=== PATIENT | male | born 1950 | race Caucasian/White ===

== ENCOUNTER 2019-07-11 01:09 | Observation (INO) | payer MEDICARE ==
[2019-07-11] MEDS ORDERED: Ondansetron PF 4 MG/2 ML Vial IVP PRN ×2 (02:31→04:50)
[2019-07-11] MEDS ORDERED: Ondansetron ODT 4 MG TAB SL PRN (02:31)
[2019-07-11 03:02] VITALS: BMI 30.4
[2019-07-11] MEDS ORDERED: Ketorolac Tromethamine 30 MG/ML VIAL IVP SCH (03:15)
[2019-07-11] MEDS ORDERED: HumaLOG 300 UNITS/3 ML VIAL SC PRN ×2 (04:50)
[2019-07-11] MEDS ORDERED: hydrALAZINE 20 MG/ML VIAL SLOW IVP PRN (04:50)
[2019-07-11] MEDS ORDERED: Dextrose 5% in Water 1,000 ML IV PRN (04:50)
[2019-07-11] MEDS ORDERED: Ondansetron ODT 4 MG TAB PO PRN (04:50)
[2019-07-11] MEDS ORDERED: Acetaminophen 500 MG TAB PO PRN (04:50)
[2019-07-11] MEDS ORDERED: Dextrose 50% Abboject 50 ML SYRINGE SLOW IVP PRN (04:50)
[2019-07-11] MEDS: Sodium Chloride 0.9% 1,000 ML IV SCH ×2 (05:27→17:11)
--- NOTE | 2019-07-11 07:07 | HP ---
PRIMARY CARE PROVIDER: Andrew Duffy MD CHIEF COMPLAINT: Abdominal pain. HISTORY OF PRESENT ILLNESS: This is a 69-year-old male, who presents to [facility] in transfer from [facility], where the patient initially presented with suprapubic abdominal pain, constipation x1 week without trauma injury or dysuria. The patient states he has had constipation over approximately 1 week's time, taking MiraLAX without relief. The patient denied any documented fever, but felt chills and some back pain. The patient denied any diarrhea, blood in his stool or urine. The patient denied any nausea or vomiting. The patient denied any travel history, trauma injury, or recent procedures. In the emergency room, the patient underwent general evaluation including CT of the abdomen and pelvis showing extensive colonic diverticulosis with possible diverticulitis of the sigmoid region. The patient received IV Flagyl, Rocephin, Zofran, and 1 L of normal saline. PAST MEDICAL HISTORY: 1. Coronary artery disease, status post cardiac stent placement. 2. Hypertension. 3. Diabetes mellitus, type 2. 4. Hyperlipidemia. PAST SURGICAL HISTORY: 1. Status post cardiac stent placement. 2. Status post right foot incision and drainage secondary to diabetic ulcer. 3. Status post bilateral great toe amputation. CURRENT MEDICATIONS: 1. Aspirin 81 mg p.o. daily. 2. Lipitor 80 mg p.o. daily. 3. Carvedilol 3.125 mg p.o. b.i.d. 4. Lasix 40 mg p.o. daily. 5. Lisinopril 10 mg p.o. daily. 6. Metformin 500 mg p.o. b.i.d. ALLERGIES: NO KNOWN DRUG ALLERGIES. FAMILY HISTORY: Positive for diabetes and hypertension. SOCIAL HISTORY: Resides in the [place], [place] area. No alcohol or illicit drug use. Remote tobacco use, none currently. REVIEW OF SYSTEMS: CONSTITUTIONAL: Negative for weight loss or gain, ability to conduct usual activities. SKIN: Negative for rash, itching. EYES: Negative for double vision, pain. ENT/MOUTH: Negative for nose bleeding, neck stiffness, pain, tenderness. CARDIOVASCULAR: Negative for palpitations, dyspnea on exertion, orthopnea. RESPIRATORY: Negative for shortness of breath, wheezing, cough, hemoptysis, fever or night sweats. GASTROINTESTINAL: Negative for poor appetite, abdominal pain, heartburn, nausea, vomiting, constipation, or diarrhea. GENITOURINARY: Negative for urgency, frequency, dysuria, nocturia. MUSCULOSKELETAL: Negative for pain, swelling. NEUROLOGIC/PSYCHIATRIC: Negative for anxiety, depression. ALLERGY/IMMUNOLOGIC: Negative for skin rash, bleeding tendency. Otherwise, negative except as stated per HPI. PHYSICAL EXAMINATION: VITAL SIGNS: On admission, blood pressure 112/74, pulse 78, respiratory rate 14, temperature 98.5 degrees Fahrenheit, and O2 saturation is 99% on room air. GENERAL APPEARANCE: This is a 69-year-old male, alert and oriented x3, pleasant, conversant, in no acute distress. HEENT: Pupils are equal, round, and reactive to light and accommodation. Extraocular muscles are intact. No scleral icterus. No conjunctival injection. Nares patent. OP is clear. Teeth in fair repair. NECK: Supple. No cervical adenopathy. No thyromegaly. No carotid bruits. No JVD appreciated. Cervical spine with full active and passive range of motion. CHEST: Lungs are clear to auscultation bilaterally. CARDIOVASCULAR: S1 and S2 without noted murmur, rub, or gallop. ABDOMEN: Rounded with tenderness to palpation in the left upper and left lower quadrant and suprapubic region. Bowel sounds positive in all 4 quadrants. No palpable mass. EXTREMITIES: Warm and dry with fair turgor. No clubbing, cyanosis, or asymmetric edema appreciated. Pulses palpable distally at the dorsalis pedis, posterior tibial, and popliteal arteries bilaterally. Capillary refill less than 2 seconds. NEUROLOGIC: Cranial nerves 2 through 12 are grossly intact. No focal or lateralizing signs appreciated. PERTINENT LABORATORY AND X-RAY FINDINGS: Sodium 129, potassium 4.1, chloride 95, CO2 of 23, BUN 17, creatinine 0.84, glucose 191, and calcium 9.3. LFTs within normal limits. CRP, C-reactive protein, 6.19. Albumin 4.1, amylase 64, lipase 47. CBC showed a white blood cell count of 12.9, hemoglobin 12, hematocrit 40, and platelet count 140 with 77% neutrophils. Urinalysis; positive for ketones. CT of the abdomen and pelvis dated 07/10/2019, showed extensive colonic diverticulosis with possible diverticulitis of the sigmoid colon. ASSESSMENT AND PLAN: 1. Acute diverticulitis/extensive colonic diverticulosis. The patient will be admitted to the surgical [facility]. We will continue Levaquin 750 mg IV q.24 hours with additional Flagyl 500 mg IV q.8 hours. Consult GI Service in the a.m. Pain control as clinically indicated. Toradol 30 mg IV q.6 hours p.r.n. Clear liquids as tolerated. 2. Diabetes mellitus, type 2. Insulin sliding scale for reflexive coverage. ADA diet when tolerating p.o. intake. Hold metformin x24 hours. 3. Hypertension. Resume home blood pressure regimen and monitor clinical response. 4. Hyponatremia. Suspect secondary to hyperglycemia. Continue serial sodium monitoring. 5. Prophylaxis. SCDs while in bed. Pepcid 20 mg p.o. b.i.d. 6. Code status is full. Surrogate medical decision maker is Mai Damon. Job ID: [id number]
[2019-07-11 07:16] LABS: Hemoglobin 10.6 g/dL (14.0-18.0); Mean Corpuscular HGB CONC 33.7 g/dL (32.0-36.0); Mean Corpuscular Hemoglobin 27.3 pg (27.0-31.0); Mean Corpuscular Volume 81.1 fL (78.0-98.0); Mean Platelet Volume 7.5 fL (7.4-10.4); Platelet Count 122 thou/uL (130-400); RBC Distribution Width 15.4 % (11.5-14.5); White Blood Cell (WBC) Count 12.5 thou/uL (4.8-10.8)
[2019-07-11 07:29] LABS: Anion Gap 12 mmol/L (10-20); BUN (Urea Nitrogen) 18 mg/dL (8.4-25.7); Calc. Creatinine Clearance 123 mL/min (70-130); Calcium 8.5 mg/dL (7.8-10.44); Carbon Dioxide 22 mmol/L (23-31); Chloride 97 mmol/L (98-107); Estimated GFR-MDRD 89; Glucose 128 mg/dL (80-115); Sodium 127 mmol/L (136-145)
[2019-07-11] MEDS ORDERED: metroNIDAZOLE 500 MG in Premix Bag 1 BAG IVPB SCH (08:00)
[2019-07-11 08:31] LABS: Eosinophils 2 % (0-10); Hypersemented Neutrophil SLIGHT; Hypochromia SLIGHT = 6-15 cells (100X) (0-5/hpf); Lymphocytes 17 % (21-51); MDiff Complete? YES; Monocytes 11 % (0-10); Neutrophil 70 % (42-75); Platelet Morphology Comment Appears Decreased
[2019-07-11] MEDS ORDERED: Ketorolac Tromethamine 30 MG/ML VIAL IVP PRN (09:00)
[2019-07-11] MEDS: Carvedilol 6.25 MG TAB PO SCH ×2 (09:04→21:28)
[2019-07-11] MEDS: Clopidogrel Bisulfate 75 MG TAB PO SCH (09:04)
[2019-07-11] MEDS: metroNIDAZOLE 500 MG in Premix Bag 1 BAG IVPB SCH ×2 (09:04→17:11)
[2019-07-11] MEDS: Senokot S 8.6-50 MG TAB PO SCH ×2 (09:04→21:28)
[2019-07-11] MEDS: Famotidine 20 MG TAB PO SCH ×2 (09:04→21:28)
[2019-07-11] MEDS: Potassium Chloride 10 MEQ TAB PO SCH (09:05)
[2019-07-11] MEDS ORDERED: cefTRIAXone\\ROCEPHIN 1 GM in Sodium Chloride 0.9% 100 ML IVPB SCH (11:00)
[2019-07-11] MEDS ORDERED: Lisinopril 2.5 MG TAB PO SCH (21:00)
[2019-07-11] MEDS ORDERED: Aspirin 81 mg Enteric Coated Tablet PO SCH (21:00)
--- NOTE | 2019-07-11 21:16 | PDOC.EVN ---
Event Note - Event Note Event Note: Hospitalist event note patient is new to me. seen and personally examined at bedside this evening. chart, labs, imaging results reviewed 69 male chronic history constipation, no prior colonoscopy, who was referred by PCP to ER for several week history of lower abdominal pain worsening in past few days in absence of fevers, chills, nausea, vomiting, blood in stools. reports last BM was saturday which is not unusual for him. admitted for abdominal pain possibly due to mild diverticulitis. at bedside no current pain. tolerating clears. seen by GI and advanced to regular diet. will discontinue IVF, IV anbitotics and change to empiric oral cipro and oral flagyl. encouraged patient to obtain outpatient screening colonoscopy.
[2019-07-11] MEDS: metroNIDAZOLE 500 MG TAB PO SCH (21:29)
[2019-07-12] MEDS ORDERED: Cipro 250 MG TAB PO SCH (06:00)
[2019-07-12 06:52] LABS: Band 2 % (5-11); Hemoglobin 10.5 g/dL (14.0-18.0); Hypochromia SLIGHT = 6-15 cells (100X) (0-5/hpf); Lymphocytes 10 % (21-51); MDiff Complete? YES; Mean Corpuscular HGB CONC 33.3 g/dL (32.0-36.0); Mean Corpuscular Hemoglobin 27.3 pg (27.0-31.0); Mean Corpuscular Volume 82.1 fL (78.0-98.0); Mean Platelet Volume 7.4 fL (7.4-10.4); Monocytes 4 % (0-10); Neutrophil 84 % (42-75); Platelet Count 138 thou/uL (130-400); Platelet Morphology Comment Appears Adequate; RBC Distribution Width 15.4 % (11.5-14.5); Red Blood Cell (RBC) Count 3.85 mill/uL (4.70-6.10); White Blood Cell (WBC) Count 12.1 thou/uL (4.8-10.8)
[2019-07-12 06:55] LABS: Anion Gap 10 mmol/L (10-20); BUN (Urea Nitrogen) 15 mg/dL (8.4-25.7); Calc. Creatinine Clearance 131 mL/min (70-130); Calcium 8.5 mg/dL (7.8-10.44); Carbon Dioxide 26 mmol/L (23-31); Chloride 98 mmol/L (98-107); Estimated GFR-MDRD Greater than 90; Glucose 112 mg/dL (80-115); Potassium 4.5 mmol/L (3.5-5.1); Sodium 129 mmol/L (136-145)
[2019-07-12] MEDS: metroNIDAZOLE 500 MG TAB PO SCH ×2 (08:46→15:43)
[2019-07-12] MEDS: Senokot S 8.6-50 MG TAB PO SCH (08:46)
[2019-07-12] MEDS: Potassium Chloride 10 MEQ TAB PO SCH (08:46)
[2019-07-12] MEDS: Clopidogrel Bisulfate 75 MG TAB PO SCH (08:47)
[2019-07-12] MEDS: Carvedilol 6.25 MG TAB PO SCH (08:47)
[2019-07-12] MEDS: Famotidine 20 MG TAB PO SCH (08:47)
[2019-07-12] MEDS ORDERED: Sodium Chloride 0.9% 1,000 ML IV SCH (10:00)
[2019-07-12 11:10] VITALS: BP 126/70; TEMP 98.2
[2019-07-12] MEDS ORDERED: metFORMIN 500 MG TAB PO SCH (17:00)
--- NOTE | 2019-07-17 10:42 | PRG ---
DATE OF SERVICE: 07/12/2019 SUBJECTIVE: This is a 69-year-old male, hospitalized with abdominal pain and findings of diverticulitis on CAT scan. The patient is doing well at the present time. He has no abdominal pain. No nausea or vomiting. He does complain of constipation off and on. The patient is tolerating regular diet without any problem. No nausea. No vomiting. The patient never had a colonoscopy in the past. Apparently, he had an EGD done, I believe in [place] a year ago and was told to have esophageal ulceration. He was supposed to go and have a repeat EGD done, but in the meantime he developed coronary artery disease and could not go back. The patient actually wants to go back to [place] to for colonoscopy. Apparently, his sister lives in [place] and it is easier for him to do the colonoscopy there in [place], then come here. OBJECTIVE: GENERAL: Appears very comfortable. VITAL SIGNS: He is afebrile, pulse is 77, and blood pressure 107/72. CARDIOVASCULAR SYSTEM: First and second heart sounds are normal. LUNGS: Clear to auscultation. ABDOMEN: Soft. No organomegaly. No tenderness. No masses. LABORATORY DATA: CBC; WBC 12,100, hemoglobin 10.5, hematocrit 31.6. Chem-7; sodium 129, potassium 4.5, otherwise lytes are normal. RECOMMENDATIONS: 1. From GI standpoint, can go home on p.o. antibiotics. 2. Consider lactulose 30 mL twice a day for constipation. The patient advised to come back to me if he decides to have colonoscopy here. However, he is leaning towards going back to [place] and having it done. Job ID: [id number]
--- NOTE | 2019-07-17 14:19 | CON ---
DATE OF CONSULTATION: 07/11/2019 REASON FOR CONSULT: Abdominal pain and findings of diverticulitis on CAT scan. HISTORY OF PRESENT ILLNESS: Mr. Yusuf Rg is a very pleasant 69-year-old male, who has history of chronic constipation and does take some laxatives off and on. The patient does see Dr. CAPONE] lately because of constipation, was advised to take MiraLAX. The patient has had no stool at least for the last 3 or 4 days and he took a lot of laxatives yesterday. He starting having multiple stools severe abdominal pain on the left lower quadrant coming across the lower abdomen. The pain is burning in nature. There is no fever or chills. No nausea, no vomiting. He has no difficulty urinating. The patient went to the ER at [place] and had a CAT scan of abdomen. The CAT scan shows findings of diverticulitis and was transferred here. He is on IV antibiotics. Surprisingly, his abdominal pain completely resolved. He has no abdominal pain. He is passing flatus. He has no nausea, no vomiting. He is tolerating clear liquid diet without difficulty. The patient has had no similar episodes in the past. The patient never had a colonoscopy in the past. He was advised to have stool for occult blood test done few months ago. He was given a stool kit. However, the patient did not take back to . The patient at the present time feels fine and has no complaints and no abdominal pain. No relevant history. ALLERGIES: NONE. SOCIAL HISTORY: The patient is . He does not smoke or drink alcohol. No history of drug use. MEDICAL ILLNESSES: 1. Type 2 diabetes mellitus. 2. Hypertension. 3. Hyperlipidemia. 4. Peripheral vascular disease, status post amputation of both the big toes and also left foot 2nd toe. 5. Coronary artery disease, status post stent placement. 6. AICD placement a few months ago by Dr. Campbell-Dr. Conn. SURGERIES: 1. Cardiac stent placement. 2. AICD placement. 3. Right big toe and left big toe amputation and also left 2nd toe amputation. He also had an I and D of his diabetic ulcer in 1991. MEDICATIONS: Aspirin, Lipitor, carvedilol, Lasix, lisinopril, metformin. FAMILY HISTORY: There is no family history of any cancer. If anyone, aunt of lung cancer, was a chronic smoker. There is family history of diabetes, hypertension. REVIEW OF SYSTEMS: CONSTITUTIONAL: No history of weight loss. No fever, no chills. He has good exercise tolerance. EYES: No impaired vision. No diplopia. EARS: No ear pain or discharge. NOSE: No nose bleed. THROAT: No sore throat or any coughing. LUNGS: No chronic coughing. No hemoptysis. No dyspnea. CARDIOVASCULAR: No chest pain no palpitation. No dyspnea, orthopnea, PND. GI: Abdominal pain is resolved and he has constipation. No hematochezia. GENITOURINARY: No history any dysuria or hematuria. MUSCULOSKELETAL: Unremarkable NEUROENDOCRINE: Unremarkable. NEUROPSYCHIATRY: Unremarkable. PHYSICAL EXAMINATION: GENERAL: Appears very comfortable. He is a very pleasant gentleman in no distress. He has mild slurring of speech. VITAL SIGNS: Pulse is 78, blood pressure 120/70. He is afebrile. HEENT: Conjunctivae are clear. NECK: Supple. No adenitis or thyromegaly noted. CARDIOVASCULAR: First and second heart sounds heard. He has systolic murmur, grade 4/6. LUNGS: Clear to auscultation. ABDOMEN: Soft. Abdomen is nondistended. Abdomen is nontender. I did palpate vigorously over the multiple areas of the abdomen including the left lower quadrant . It is completely nontender. EXTREMITIES: Reveal no edema. CENTRAL NERVOUS SYSTEM: Normal. LABORATORY DATA: On admission CBC: WBC 12,500, hemoglobin is 10.6, hematocrit 31.6, MCV is 81.1, platelet count is 222,000, polymorphs 70, lymphocytes 17, monocytes 11. Serum chemistries: Sodium 127, potassium 4, chloride 97, bicarb 22, BUN is 18, creatinine 0.85, glucose 122, calcium 8.5. Abdominal CAT scan done showed diffuse diverticular disease, possible diverticulitis in sigmoid colon. IMPRESSION: 1. A 69-year-old male with abdominal pain, history of constipation. The patient's abdominal pain has resolved. Abdomen is very benign and nontender. In fact deep palpation over the left lower quadrant is nontender. 2. Diabetes mellitus. 3. Hypertension. 4. Hyperlipidemia. 5. Peripheral vascular disease with previous surgical intervention. 6. Coronary artery stent placement. 7. Automatic implantable cardioverter defibrillator placement. RECOMMENDATIONS: Advance diet to a diabetic diet today. If he does well, consider discharge home tomorrow on antibiotic. I did talk to Mr. Rg that he may have to come back for a colonoscopy and we will plan for colonoscopy next month as outpatient. Job ID: [id number]
== END 2019-07-12 15:18 | disposition home or self-care (01) ==
LOC: ERS 01:09 → SURG A 02:25 → INTOOBSV 02:25
PROVIDERS: ADMIT Family Medicine; ATTEND Family Medicine
DX: K57.32 Diverticulitis of large intestine without perforation or abscess without bleeding (principal); K59.09 Other constipation; I25.10 Atherosclerotic heart disease of native coronary artery without angina pectoris; I10 Essential (primary) hypertension; E78.5 Hyperlipidemia, unspecified; E87.1 Hypo-osmolality and hyponatremia; E11.51 Type 2 diabetes mellitus with diabetic peripheral angiopathy without gangrene; Z79.02 Long term (current) use of antithrombotics/antiplatelets; Z79.82 Long term (current) use of aspirin; Z79.84 Long term (current) use of oral hypoglycemic drugs; Z79.899 Other long term (current) drug therapy; Z88.8 Allergy status to other drugs, medicaments and biological substances; Z87.891 Personal history of nicotine dependence; Z95.5 Presence of coronary angioplasty implant and graft; Z95.810 Presence of automatic (implantable) cardiac defibrillator; Z89.412 Acquired absence of left great toe; Z89.411 Acquired absence of right great toe
CPT/HCPCS: 80048 ×2; 82962 ×2; 85007 ×2; 85027 ×2; 96361; 96365; 96367; 96375; 96376; 99284; G0378 ×3; 36415; 36416; J1885; J1956

== ENCOUNTER 2025-06-22 00:53 | Emergency (ER) | payer MEDICARE ==
[2025-06-22 01:50] LABS: #Basophils 0.04 10x3/uL (0.0-0.2); #Eosinophils 0.12 10x3/uL (0.0-0.7); #Monocytes 0.93 10x3/uL (0.11-0.59); #Neutrophils 5.32 10x3/uL (1.40-6.50); %Basophils 0.4 % (0.0-1.0); %Eosinophils 1.3 % (0.0-10.0); %Lymphocytes 30.5 % (21.0-51.0); %Monocytes 10.0 % (0.0-10.0); %Neutrophils 57.4 % (42.0-75.0); Hematocrit 35.3 % (42.0-52.0); Hemoglobin 11.0 g/dL (14.0-18.0); Mean Corpuscular Hemoglobin 28.6 pg (27.0-31.0); Mean Corpuscular Volume 91.7 fL (78.0-98.0); Platelet Count 162 10x3/uL (130-400); Red Blood Cell (RBC) Count 3.85 mill/uL (4.70-6.10); White Blood Cell (WBC) Count 9.28 10x3/uL (4.8-10.8)
[2025-06-22 02:07] LABS: ALT (SGPT) 39 U/L (Less than 45); AST (SGOT) 27 U/L (11-34); Albumin 3.4 g/dL (3.1-4.5); Alkaline Phosphatase 140 U/L (40-110); Anion Gap 17 mmol/L (10-20); BUN (Urea Nitrogen) 26 mg/dL (8.4-25.7); Bilirubin, Total 0.8 mg/dL (0.3-1.2); Calc. Creatinine Clearance 0 mL/min (70-130); Calcium 8.8 mg/dL (7.8-10.44); Carbon Dioxide 24 mmol/L (23-31); Chloride 96 mmol/L (98-107); Globulin 3.9 g/dL (2.4-3.5); Glucose 106 mg/dL (83-110); Potassium 4.6 mmol/L (3.5-5.1); Sodium 132 mmol/L (136-145)
== END 2025-06-22 04:33 | disposition home or self-care (01) ==
LOC: ERS 00:53
DX: R07.9 Chest pain, unspecified (principal); R79.89 Other specified abnormal findings of blood chemistry; I10 Essential (primary) hypertension; I25.2 Old myocardial infarction; I48.91 Unspecified atrial fibrillation; E11.9 Type 2 diabetes mellitus without complications; E78.5 Hyperlipidemia, unspecified; Z95.5 Presence of coronary angioplasty implant and graft; Z55.6 Problems related to health literacy; Z87.891 Personal history of nicotine dependence
CPT/HCPCS: 71045; 83880; 84484; 93005